=== PATIENT | female | born 1965 | race Caucasian/White ===

== ENCOUNTER 2020-04-24 05:53 | Day surgery (SDC) | payer OTHER, SELFPAY ==
[~2020-04-24] VITALS: Ht 154.9 cm; Wt 66.2 kg
[2020-04-24] MEDS ORDERED: LIDOCAINE VISCOUS 2% 20 ML UDC ONE (07:40)
[2020-04-24] MEDS ORDERED: MIDAZOLAM 2 MG/2 ML VIAL ONE ×2 (07:40→08:38)
[2020-04-24] MEDS ORDERED: LIDOCAINE 2% 100 MG/5 ML UJET TP ONE (07:40)
[2020-04-24] MEDS ORDERED: fentaNYL citrate 0.05 MG/ML VIAL ONE ×2 (07:40→08:38)
[2020-04-24] MEDS ORDERED: diphenhydrAMINE 50 MG/ML VIAL ONE (07:44)
[2020-04-24] MEDS ORDERED: LORazepam 2 MG/ML VIAL IVP PRN (07:45)
== END 2020-04-24 09:50 | disposition home or self-care (01) ==
LOC: MDS 05:53 → MMU 06:08 → MDS 09:50
PROVIDERS: ATTEND Internal Medicine Gastroenterology
DX: K59.00 Constipation, unspecified (principal); K21.9 Gastro-esophageal reflux disease without esophagitis; F41.9 Anxiety disorder, unspecified; Z87.891 Personal history of nicotine dependence; Z79.899 Other long term (current) drug therapy; Z90.710 Acquired absence of both cervix and uterus; Z11.59 Encounter for screening for other viral diseases; Z98.890 Other specified postprocedural states
CPT/HCPCS: 45380; 88305; J1200; J2060; J2250; J3010; U0003

== ENCOUNTER 2020-07-10 06:28 | Day surgery (SDC) | payer OTHER, SELFPAY ==
[2020-07-10 07:45] LABS: BASOPHILS # (AUTO) 0.1 K/uL (0.00-0.22); BASOPHILS % (AUTO) 1.6 % (0.0-2.0); EOSINOPHILS # (AUTO) 0.1 K/uL (0-0.4); EOSINOPHILS % (AUTO) 1.9 % (0.0-4.0); HEMATOCRIT 37.4 % (36-48); HEMOGLOBIN 12.6 g/dL (12.0-16.0); LYMPHOCYTES # (AUTO) 1.3 K/uL (2.5-16.5); MEAN CORPUSCULAR HEMOGLOBIN 31 pg (27-31); MEAN CORPUSCULAR HGB CONC 34 g/dL (33-37); MEAN CORPUSCULAR VOLUME 92.6 fL (80-94); MONOCYTES # (AUTO) 0.5 K/uL (0.8-1.0); MONOCYTES % (AUTO) 7.8 % (1.7-9.3); NEUTROPHILS # (AUTO) 3.9 K/uL (1.8-7.7); NEUTROPHILS % (AUTO) 66.7 % (42.2-75.2); PLATELET COUNT (AUTO) 358 K/uL (140-450); RED BLOOD CELL COUNT(AUTO) 4.04 MIL/uL (4.20-5.40); RED CELL DISTRIBUTION WIDTH 12.9 % (11.6-13.7); WHITE BLOOD COUNT (AUTO) 5.8 K/uL (4.8-10.8)
[2020-07-10 07:58] LABS: ALBUMIN 3.2 g/dL (3.4-5.0); ANION GAP 12.1 (8-16); CARBON DIOXIDE 26.8 mmol/L (21-32); CREATININE 0.8 mg/dL (0.6-1.3); POTASSIUM 3.9 mmol/L (3.5-5.1); TOTAL BILIRUBIN 0.3 mg/dL (0.0-1.0)
[2020-07-10] MEDS ORDERED: PROPOFOL 200 MG/20 ML VIAL IV ONE (08:25)
[2020-07-10] MEDS ORDERED: fentaNYL citrate 0.05 MG/ML VIAL ONE (08:25)
== END 2020-07-10 10:00 | disposition home or self-care (01) ==
LOC: MDS 06:28 → MFCC 06:29 → MDS 10:00
PROVIDERS: ATTEND Internal Medicine Gastroenterology
DX: R13.10 Dysphagia, unspecified (principal); K21.0 Gastro-esophageal reflux disease with esophagitis; Z20.828 Contact with and (suspected) exposure to other viral communicable diseases; F41.9 Anxiety disorder, unspecified; F32.9 Major depressive disorder, single episode, unspecified; Z98.890 Other specified postprocedural states
CPT/HCPCS: 36415; 43239; 71045; 80053; 81025; 85025; 88305; 88312; 88313; 93005; J2704; J3010; J7120; Q0092; U0003